=== PATIENT | female | born 1945 | race Caucasian/White ===

== ENCOUNTER 2017-03-01 05:32 | Inpatient (IN) | payer MEDICARE ==
[2017-02-24 12:06] LABS: BASOPHILS % (AUTO) 0.3 % (0-1); EOSINOPHILS # (AUTO) 0.3 X10'3 (0-0.9); EOSINOPHILS % (AUTO) 3.1 % (0-6); LYMPHOCYTES # (AUTO) 1.4 X10'3 (1.1-4.8); LYMPHOCYTES % (AUTO) 15.7 % (21-51); MEAN CORPUSCULAR HEMOGLOBIN 32.2 PG (27.0-31.0); MEAN CORPUSCULAR HGB CONC 33.4 % (33.0-36.5); MEAN CORPUSCULAR VOLUME 96.4 FL (78-98); MEAN PLATELET VOLUME 7.8 FL (7.4-10.4); MONOCYTES # (AUTO) 0.6 X10'3 (0-0.9); MONOCYTES % (AUTO) 7.4 % (2-12); NEUTROPHILS # (AUTO) 6.4 X10'3 (1.8-7.7); NEUTROPHILS % (AUTO) 73.5 % (42-75); PRE OP HEMATOCRIT 39.6 % (35.0-45.0); PRE OP HEMOGLOBIN 13.2 g/dL (12.0-16.0); PRE OP PLATELET COUNT 354 X10'3 (140-440); RED BLOOD COUNT 4.11 X10'6 (4.20-5.60); RED CELL DISTRIBUTION WIDTH 13.4 % (11.5-14.5)
[2017-02-24 12:28] LABS: ALBUMIN 4.3 G/DL (3.4-5.0); ALBUMIN/GLOBULIN RATIO 1.1 (1.1-1.5); ALKALINE PHOSPHATASE 65 IU/L (46-116); BLOOD UREA NITROGEN 12 MG/DL (7-18); BUN/CREATININE RATIO 12.2 (6.6-38.0); CALCIUM 9.4 MG/DL (8.5-10.1); CHLORIDE 95 MMOL/L (99-107); CREATININE 0.98 MG/DL (0.40-0.90); PRE OP ALT 27 U/L (30-65); PRE OP ANION GAP 10 (8-16); PRE OP AST 21 U/L (10-37); PRE OP BILIRUB, TOTAL 0.5 MG/DL (0.0-1.0); PRE OP GLUCOSE 111 MG/DL (70-104); PRE OP POTASSIUM 3.9 MMOL/L (3.4-5.1); PRE OP SODIUM 134 MMOL/L (135-145); TOTAL CARBON DIOXIDE 29.5 MMOL/L (24-32); TOTAL PROTEIN 8.1 G/DL (6.4-8.2); eGFR 56 ML/MIN
[2017-02-24 12:50] LABS: PRE OP PROTIME 9.9 SECONDS (9.0-12.0)
[2017-02-24 12:59] LABS: HEMOGLOBIN A1C 5.8 % (4.5-6.2)
[2017-03-01] VITALS (18 sets, daily range): BP systolic 118–152; BP diastolic 60–87
[~2017-03-01] VITALS: Ht 160 cm; Wt 101.8 kg
[~2017-03-01 05:32] MED LIST: AMLO2.5T2 PO; ASPI-611 PO; CHOL100062 PO; CYA500T INJ; DOCUMENT DATE & TIME OF BETA-BLOCKER PO ONE; ESZO3TAB37 PO; FERR325T32 PO; FLUT16SP2 BOTHNARES; FURO40TA4 PO; GABA-532 PO; GABA600T2 PO; HYDR-3973 PO; METF10002 PO; METO50TA17 PO; ROPI1TAB2 PO; SENN-93 PO; SERT100T PO; [UNRECOGNIZED DRUG - OTHER] PO; ceFAZolin 2gm in dextrose, iso 100 ML IV ONE; famotidine 20mg tablet PO ONE; ringers solution, lacted 1,000 ML IV SCH
[2017-03-01] MEDS ORDERED: LIDOcaine 1% (10mg/ml) 2ml vial ONE (05:53)
[2017-03-01] MEDS ORDERED: ceFAZolin 1000mg inj ONE (06:07)
[2017-03-01] MEDS ORDERED: fentaNYL /PF 50mcg/ml 5ml ampule ONE (07:25)
[2017-03-01] MEDS ORDERED: rocuronium 10mg/ml inj IV ONE (07:26)
[2017-03-01] MEDS ORDERED: LIDOcaine 2% (20mg/ml) 5ml vial ONE (07:26)
[2017-03-01] MEDS ORDERED: propofol inj 20 ML IV ONE (07:26)
[2017-03-01] MEDS ORDERED: tranexamic acid inj. 1,000 MG in normal saline 100ml IV soln 90 ML IV ONE (07:30)
[2017-03-01] MEDS ORDERED: cloNIDine hcl/PF 100mcg/ml inj ONE (07:30)
[2017-03-01] MEDS ORDERED: sevoflurane 250ml liquid IH ONE (07:35)
[2017-03-01] MEDS ORDERED: dexamethasone sod phosphate 4mg/ml inj. ONE (08:45)
[2017-03-01] MEDS ORDERED: ROPIVAcaine 0.5% (5mg/ml) 30ml vial ONE (08:45)
[2017-03-01] MEDS ORDERED: ePHEDrine 50MG/ML INJ. ONE (08:52)
[2017-03-01] MEDS ORDERED: ringers solution, lacted 1,000 ML IV SCH (09:09)
[2017-03-01] MEDS ORDERED: fentaNYL/PF 50MCG/1 ML 2ML syringe IV PRN ×2 (09:10)
[2017-03-01] MEDS ORDERED: ondansetron/PF 4mg/2ml inj IV PRN (09:10)
[2017-03-01] MEDS ORDERED: HYDROmorphone 1 mg/ml syringe IV PRN ×2 (09:10)
[2017-03-01] MEDS ORDERED: meperidine/PF 50mg/ml syringe ONE (10:45)
[2017-03-01] MEDS ORDERED: diphenhydrAMINE 25mg capsule PO PRN ×2 (11:05)
[2017-03-01] MEDS ORDERED: bisacodyl 10mg suppository rectal RC PRN (11:05)
[2017-03-01] MEDS ORDERED: magnesium hydroxide 30ml (MOM) UD suspension PO PRN (11:05)
[2017-03-01] MEDS ORDERED: HYDROcodone/acetaminophen 10/325mg tab PO PRN (11:05)
[2017-03-01] MEDS ORDERED: acetaminophen 325mg tablet PO PRN (11:05)
[2017-03-01] MEDS: HYDROmorphone 1 mg/ml syringe IV PRN ×3 (12:49→20:43)
[2017-03-01] MEDS ORDERED: tranexamic acid inj. 1,000 MG in normal saline 100ml IV soln 100 ML IV ONE (14:05)
[2017-03-01] MEDS: HYDROcodone/acetaminophen 10/325mg tab PO PRN ×2 (15:46→22:31)
[2017-03-01] MEDS: cefazolin 1gm/NS 100mL 100 ML IV SCH (17:07)
[2017-03-01] MEDS: aspirin 81mg tablet.DR PO SCH (17:16)
[2017-03-01] MEDS ORDERED: dextrose ORAL solution 15 GM/59 ML bottle PO PRN ×2 (19:55)
[2017-03-01] MEDS ORDERED: MESSAGE TO PHARMACY PO ONE (19:55)
[2017-03-01] MEDS ORDERED: dextrose 50%-water 50ml dispensing syringe IV PRN ×2 (19:55)
[2017-03-01] MEDS ORDERED: glucagon, human recombinant 1mg kit SUBCUT PRN (19:55)
[2017-03-01] MEDS ORDERED: vancomycin/NS 1 GM ADD-VANTAGE 250 ML IV SCH (20:00)
[2017-03-01] MEDS: ketorolac tromethamine 15mg/ml inj. IV SCH (20:43)
[2017-03-01] MEDS: sennosides 8.6mg tablet PO SCH (22:00)
[2017-03-01] MEDS: amLODIPine 2.5mg tablet PO SCH (22:01)
[2017-03-01] MEDS: zolpidem 5mg tablet PO PRN (22:01)
[2017-03-01] MEDS: gabapentin 300mg capsule PO SCH (22:01)
[2017-03-01] MEDS: metoprolol tartrate 50mg tablet PO SCH (22:01)
[2017-03-01] MEDS: potassium cl 20mEq in 1/2 NS 1,000 ML IV SCH (22:04)
[2017-03-01] MEDS: insulin glargine (Lantus) pen - multi-dose SQ SCH (22:29)
[2017-03-02] MEDS: ondansetron/PF 4mg/2ml inj IV PRN ×2 (00:05→19:26)
[2017-03-02] MEDS: cefazolin 1gm/NS 100mL 100 ML IV SCH (00:06)
[2017-03-02] MEDS: potassium cl 20mEq in 1/2 NS 1,000 ML IV SCH (00:22)
[2017-03-02 02:00] VITALS: BP 149/70
[2017-03-02] MEDS: ketorolac tromethamine 15mg/ml inj. IV SCH ×4 (02:22→20:00)
[2017-03-02] MEDS: HYDROcodone/acetaminophen 10/325mg tab PO PRN ×5 (05:12→23:21)
[2017-03-02 06:13] LABS: BASOPHILS % (AUTO) 0.3 % (0-1); EOSINOPHILS # (AUTO) 0.2 X10'3 (0-0.9); EOSINOPHILS % (AUTO) 1.7 % (0-6); HEMATOCRIT 29.7 % (35.0-45.0); HEMOGLOBIN 10.1 g/dl (12.0-16.0); LYMPHOCYTES # (AUTO) 1.1 X10'3 (1.1-4.8); LYMPHOCYTES % (AUTO) 11.8 % (21-51); MEAN CORPUSCULAR HEMOGLOBIN 32.6 PG (27.0-31.0); MEAN CORPUSCULAR VOLUME 95.9 FL (78-98); MEAN PLATELET VOLUME 7.7 FL (7.4-10.4); MONOCYTES # (AUTO) 1.1 X10'3 (0-0.9); MONOCYTES % (AUTO) 11.8 % (2-12); NEUTROPHILS # (AUTO) 6.7 X10'3 (1.8-7.7); NEUTROPHILS % (AUTO) 74.4 % (42-75); PLATELET COUNT 280 X10'3 (140-440); RED CELL DISTRIBUTION WIDTH 13.4 % (11.5-14.5)
[2017-03-02 06:40] LABS: ALANINE AMINOTRANSFERASE 26 U/L (12-78); ALBUMIN 3.2 G/DL (3.4-5.0); ALBUMIN/GLOBULIN RATIO 1.1 (1.1-1.5); ALKALINE PHOSPHATASE 49 IU/L (46-116); ANION GAP 5 (8-16); ASPARTATE AMINO TRANSFERASE 17 U/L (10-37); BILIRUBIN,TOTAL 0.8 MG/DL (0.1-1.0); BLOOD UREA NITROGEN 6 MG/DL (7-18); BUN/CREATININE RATIO 7.8 (6.6-38.0); CALCIUM 8.2 MG/DL (8.5-10.1); CHLORIDE 99 MMOL/L (99-107); CREATININE 0.77 MG/DL (0.40-0.90); GLUCOSE 166 MG/DL (70-104); SODIUM 132 MMOL/L (135-145); TOTAL CARBON DIOXIDE 28.4 MMOL/L (24-32); eGFR 74 ML/MIN
[2017-03-02] MEDS: fluticasone nasal spray 16GM bottle NS SCH (08:00)
[2017-03-02] MEDS: insulin Lispro (HumaLOG) vial - multi-dose SQ SCH ×2 (09:50→19:24)
[2017-03-02] MEDS: metoprolol tartrate 50mg tablet PO SCH ×2 (09:54→20:54)
[2017-03-02] MEDS: sertraline 50mg tablet PO SCH (09:54)
[2017-03-02] MEDS: gabapentin 300mg capsule PO SCH ×2 (09:54→20:54)
[2017-03-02] MEDS: amLODIPine 2.5mg tablet PO SCH ×2 (09:55→20:54)
[2017-03-02] MEDS: furosemide 40mg tablet PO SCH (09:55)
[2017-03-02] MEDS: aspirin 81mg tablet.DR PO SCH ×2 (09:55→17:52)
[2017-03-02 10:00] VITALS: BP 141/70
[2017-03-02] MEDS: HYDROmorphone 1 mg/ml syringe IV PRN (12:22)
[2017-03-02 15:00] VITALS: BP 131/80
[2017-03-02] MEDS: NUT.TX.GLUC.INTOLER,LAC-FR,REG (BOOST GLUCOSE CONTROL) 237 ML PO SCH (18:00)
[2017-03-02 18:30] VITALS: BP 137/73
[2017-03-02] MEDS: sennosides 8.6mg tablet PO SCH (20:54)
[2017-03-02] MEDS: insulin glargine (Lantus) pen - multi-dose SQ SCH (21:34)
[2017-03-02] MEDS: mag hydrox/Alum hydrox/simeth 30ml oral suspension PO PRN (21:55)
[2017-03-02] MEDS: zolpidem 5mg tablet PO PRN (21:55)
[2017-03-02 22:30] VITALS: BP 129/68
[2017-03-03] MEDS: HYDROcodone/acetaminophen 10/325mg tab PO PRN ×4 (04:12→21:45)
[2017-03-03 06:00] VITALS: BP 120/81
[2017-03-03 06:28] LABS: BASOPHILS % (AUTO) 0.2 % (0-1); EOSINOPHILS # (AUTO) 0.3 X10'3 (0-0.9); EOSINOPHILS % (AUTO) 2.4 % (0-6); HEMATOCRIT 28.5 % (35.0-45.0); HEMOGLOBIN 9.7 g/dl (12.0-16.0); LYMPHOCYTES # (AUTO) 0.9 X10'3 (1.1-4.8); LYMPHOCYTES % (AUTO) 7.7 % (21-51); MEAN CORPUSCULAR HEMOGLOBIN 32.5 PG (27.0-31.0); MEAN CORPUSCULAR VOLUME 95.7 FL (78-98); MEAN PLATELET VOLUME 7.6 FL (7.4-10.4); MONOCYTES % (AUTO) 8.6 % (2-12); NEUTROPHILS # (AUTO) 9.3 X10'3 (1.8-7.7); NEUTROPHILS % (AUTO) 81.1 % (42-75); PLATELET COUNT 266 X10'3 (140-440); RED BLOOD COUNT 2.98 X10'6 (4.20-5.60); RED CELL DISTRIBUTION WIDTH 13.4 % (11.5-14.5); WHITE BLOOD COUNT 11.5 X10'3 (4.5-11.0)
[2017-03-03 07:01] LABS: ALANINE AMINOTRANSFERASE 25 U/L (12-78); ALKALINE PHOSPHATASE 61 IU/L (46-116); ANION GAP 8 (8-16); ASPARTATE AMINO TRANSFERASE 19 U/L (10-37); BILIRUBIN,TOTAL 0.7 MG/DL (0.1-1.0); BLOOD UREA NITROGEN 8 MG/DL (7-18); BUN/CREATININE RATIO 11.4 (6.6-38.0); CALCIUM 8.6 MG/DL (8.5-10.1); CHLORIDE 97 MMOL/L (99-107); GLUCOSE 127 MG/DL (70-104); POTASSIUM 3.6 MMOL/L (3.5-5.1); SODIUM 131 MMOL/L (135-145); TOTAL CARBON DIOXIDE 26.5 MMOL/L (24-32); eGFR 82 ML/MIN
[2017-03-03] MEDS: aspirin 81mg tablet.DR PO SCH ×2 (08:09→22:00)
[2017-03-03] MEDS: NUT.TX.GLUC.INTOLER,LAC-FR,REG (BOOST GLUCOSE CONTROL) 237 ML PO SCH ×3 (08:09→18:00)
[2017-03-03] MEDS: metoprolol tartrate 50mg tablet PO SCH ×2 (08:09→21:46)
[2017-03-03] MEDS: furosemide 40mg tablet PO SCH (08:09)
[2017-03-03] MEDS: amLODIPine 2.5mg tablet PO SCH ×2 (08:10→21:46)
[2017-03-03] MEDS: gabapentin 300mg capsule PO SCH ×2 (08:10→21:47)
[2017-03-03] MEDS: sertraline 50mg tablet PO SCH (08:10)
[2017-03-03] MEDS: insulin Lispro (HumaLOG) vial - multi-dose SQ SCH ×3 (09:37→18:58)
[2017-03-03] MEDS: fluticasone nasal spray 16GM bottle NS SCH (09:49)
[2017-03-03 10:00] VITALS: BP 135/62
[2017-03-03 18:30] VITALS: BP 136/70
[2017-03-03] MEDS: sennosides 8.6mg tablet PO SCH (21:00)
[2017-03-03] MEDS: insulin glargine (Lantus) pen - multi-dose SQ SCH (21:00)
[2017-03-03 22:00] VITALS: BP 143/96
[2017-03-03] MEDS: mag hydrox/Alum hydrox/simeth 30ml oral suspension PO PRN (22:01)
[2017-03-03] MEDS: zolpidem 5mg tablet PO PRN (23:06)
[2017-03-04] MEDS: HYDROcodone/acetaminophen 10/325mg tab PO PRN ×2 (01:50→08:48)
[2017-03-04 05:00] VITALS: BP 129/70
[2017-03-04 06:23] LABS: BASOPHILS % (AUTO) 0.1 % (0-1); EOSINOPHILS # (AUTO) 0.3 X10'3 (0-0.9); EOSINOPHILS % (AUTO) 2.8 % (0-6); HEMOGLOBIN 9.1 g/dl (12.0-16.0); LYMPHOCYTES # (AUTO) 0.8 X10'3 (1.1-4.8); LYMPHOCYTES % (AUTO) 8.2 % (21-51); MEAN CORPUSCULAR HEMOGLOBIN 32.6 PG (27.0-31.0); MEAN CORPUSCULAR HGB CONC 33.7 % (33.0-36.5); MEAN CORPUSCULAR VOLUME 96.7 FL (78-98); MEAN PLATELET VOLUME 8.1 FL (7.4-10.4); MONOCYTES % (AUTO) 10.5 % (2-12); NEUTROPHILS # (AUTO) 7.4 X10'3 (1.8-7.7); NEUTROPHILS % (AUTO) 78.4 % (42-75); PLATELET COUNT 256 X10'3 (140-440); RED CELL DISTRIBUTION WIDTH 12.8 % (11.5-14.5); WHITE BLOOD COUNT 9.5 X10'3 (4.5-11.0)
[2017-03-04 07:04] LABS: ALANINE AMINOTRANSFERASE 19 U/L (12-78); ALBUMIN 2.8 G/DL (3.4-5.0); ALBUMIN/GLOBULIN RATIO 0.9 (1.1-1.5); ALKALINE PHOSPHATASE 66 IU/L (46-116); ANION GAP 5 (8-16); ASPARTATE AMINO TRANSFERASE 17 U/L (10-37); BILIRUBIN,TOTAL 0.6 MG/DL (0.1-1.0); BLOOD UREA NITROGEN 9 MG/DL (7-18); BUN/CREATININE RATIO 12.9 (6.6-38.0); CALCIUM 8.6 MG/DL (8.5-10.1); CHLORIDE 98 MMOL/L (99-107); GLUCOSE 130 MG/DL (70-104); POTASSIUM 3.9 MMOL/L (3.5-5.1); SODIUM 132 MMOL/L (135-145); TOTAL CARBON DIOXIDE 29.1 MMOL/L (24-32); eGFR 82 ML/MIN
[2017-03-04] MEDS: NUT.TX.GLUC.INTOLER,LAC-FR,REG (BOOST GLUCOSE CONTROL) 237 ML PO SCH (08:46)
[2017-03-04] MEDS: aspirin 81mg tablet.DR PO SCH (08:46)
[2017-03-04] MEDS: gabapentin 300mg capsule PO SCH (08:47)
[2017-03-04] MEDS: fluticasone nasal spray 16GM bottle NS SCH (08:47)
[2017-03-04] MEDS: furosemide 40mg tablet PO SCH (08:47)
[2017-03-04] MEDS: metoprolol tartrate 50mg tablet PO SCH (08:47)
[2017-03-04] MEDS: sertraline 50mg tablet PO SCH (08:48)
[2017-03-04] MEDS: amLODIPine 2.5mg tablet PO SCH (08:48)
[2017-03-04] MEDS: insulin Lispro (HumaLOG) vial - multi-dose SQ SCH (09:44)
[2017-03-04 10:30] VITALS: BP 114/75
== END 2017-03-04 11:30 | DRG 470 ==
LOC: PAS IN 05:32 → EDSTATUS 07:30 → ORTHO 4S 12:07
PROVIDERS: ADMIT Orthopaedic Surgery; ATTEND Orthopaedic Surgery
PROC: 3E0T3BZ Introduction of Anesthetic Agent into Peripheral Nerves and Plexi, Percutaneous Approach (ICD-10-PCS; 2017-03-01)
PROC: 0SRC0J9 Replacement of Right Knee Joint with Synthetic Substitute, Cemented, Open Approach (ICD-10-PCS; principal; 2017-03-01 07:28)
DX: M17.11 Unilateral primary osteoarthritis, right knee (principal); D62 Acute posthemorrhagic anemia; I48.2 Chronic atrial fibrillation; E11.9 Type 2 diabetes mellitus without complications; F32.9 Major depressive disorder, single episode, unspecified; G25.81 Restless legs syndrome; I10 Essential (primary) hypertension; I25.10 Atherosclerotic heart disease of native coronary artery without angina pectoris; Z96.652 Presence of left artificial knee joint; Z96.611 Presence of right artificial shoulder joint; Z98.1 Arthrodesis status; Z98.84 Bariatric surgery status; Z90.49 Acquired absence of other specified parts of digestive tract; Z79.899 Other long term (current) drug therapy
CPT/HCPCS: 36415; 71046; 80053; 82948; 83036; 85025; 85610; 85730; 86885; 86900; 86901; 86920; 87070; 97110; 97116; 97162; 97530; A6223; A6255; A6449; A6454; A7000; C1713; C1758; C1776; J0690; J0735; J1100; J1170; J1815; J1885; J2001; J2175; J2405; J2704; J2795; J3010; J3370; J3490; J7030; J7120

== ENCOUNTER 2019-08-07 10:37 | Emergency (ER) | payer MEDICARE ==
[~2019-08-07] VITALS: Ht 157.5 cm; Wt 96.0 kg
[~2019-08-07 10:37] MED LIST changes: -ASPI-611 PO; -CHOL100062 PO; -CYA500T INJ; -DOCUMENT DATE & TIME OF BETA-BLOCKER PO ONE; -FERR325T32 PO; +GABA600T13 PO; -GABA600T2 PO; -HYDR-3973 PO; -METF10002 PO; -[UNRECOGNIZED DRUG - OTHER] PO; -ceFAZolin 2gm in dextrose, iso 100 ML IV ONE; -famotidine 20mg tablet PO ONE; -ringers solution, lacted 1,000 ML IV SCH
[2019-08-07 11:13] LABS: BASOPHILS % (AUTO) 0.2 % (0-1); EOSINOPHILS # (AUTO) 0.1 X10'3 (0-0.9); EOSINOPHILS % (AUTO) 0.8 % (0-6); HEMATOCRIT 38.2 % (35.0-45.0); HEMOGLOBIN 12.7 g/dl (12.0-16.0); LYMPHOCYTES # (AUTO) 0.4 X10'3 (1.1-4.8); LYMPHOCYTES % (AUTO) 2.5 % (21-51); MEAN CORPUSCULAR HEMOGLOBIN 31.7 PG (27.0-31.0); MEAN CORPUSCULAR HGB CONC 33.3 g/dL (33.0-36.5); MEAN CORPUSCULAR VOLUME 95.2 FL (78-98); MEAN PLATELET VOLUME 7.6 FL (7.4-10.4); MONOCYTES # (AUTO) 0.6 X10'3 (0-0.9); MONOCYTES % (AUTO) 3.8 % (2-12); NEUTROPHILS # (AUTO) 13.9 X10'3 (1.8-7.7); NEUTROPHILS % (AUTO) 92.7 % (42-75); PLATELET COUNT 334 X10'3 (140-440); RED BLOOD COUNT 4.01 X10'6 (4.20-5.60); RED CELL DISTRIBUTION WIDTH 13.6 % (11.5-14.5)
[2019-08-07 11:31] LABS: ALANINE AMINOTRANSFERASE 22 U/L (12-78); ALBUMIN 3.9 G/DL (3.4-5.0); ALBUMIN/GLOBULIN RATIO 1.1 (1.1-1.5); ALKALINE PHOSPHATASE 76 IU/L (46-116); ANION GAP 12 (8-16); ASPARTATE AMINO TRANSFERASE 22 U/L (10-37); BILIRUBIN,TOTAL 0.6 MG/DL (0.1-1.0); BLOOD UREA NITROGEN 16 MG/DL (7-18); BUN/CREATININE RATIO 16.7 (6.6-38.0); CALCIUM 9.6 MG/DL (8.5-10.1); CHLORIDE 100 MMOL/L (99-107); CREATININE 0.96 MG/DL (0.40-0.90); GLUCOSE 100 MG/DL (70-104); POTASSIUM 4.2 MMOL/L (3.5-5.1); SODIUM 137 MMOL/L (135-145); TOTAL PROTEIN 7.3 G/DL (6.4-8.2); eGFR 57 ML/MIN
[2019-08-07] MEDS ORDERED: normal saline 1000ML IV soln IV ONE (11:40)
[2019-08-07 11:54] LABS: CLARITY,URINE SLIGHTLY CLOUDY (Clear); COLOR,URINE YELLOW (Yellow); GLUCOSE, URINE NEGATIVE (Neg); KETONES,URINE NEGATIVE (Neg); LEUKOCYTE ESTERASE ,URINE MODERATE (Neg); NITRITES, URINE POSITIVE (Neg); OCCULT BLOOD,URINE NEGATIVE (Neg); PROTEIN,URINE NEGATIVE (Neg); UROBILINOGEN,URINE 0.2 E.U/dL (0.2-1.0)
[2019-08-07 11:58] LABS: UA COLLECTION TYPE STRAIGHT CATH
--- NOTE | 2019-08-07 12:03 | NUR ---
Pt. getting IV fluids as ordered. VSS. Urine in lab & results pending. family at bedside.
[2019-08-07 12:04] LABS: WBC,URINE 50-100 /HPF (0-4)
[2019-08-07 12:05] LABS: BACTERIA,URINE 4+ /HPF (Neg); RBC,URINE 0-2 /HPF (0-2); SQUAMOUS EPITHELIAL CELL,UR FEW /LPF (FEW); TRANSITIONAL EPI CELLS,URINE FEW /HPF; WBC CLUMPS,URINE FEW /HPF (NEGATIVE)
[2019-08-07] MEDS ORDERED: CefTRIAXone 2gm/D5W 50ml 50 ML IV ONE (12:15)
[2019-08-07] MEDS ORDERED: heparin 25,000 UNIT/250ml bag 250 ML IV SCH (12:23)
[2019-08-07] MEDS ORDERED: heparin 10,000 units/1 ML INJ IV ONE (12:25)
[2019-08-07] MEDS ORDERED: CEPH250T PO (14:10)
[2019-08-07 14:46] VITALS: BP 141/71
== END 2019-08-07 14:50 | disposition home or self-care (01) ==
LOC: ER 10:37
DX: N39.0 Urinary tract infection, site not specified (principal); E87.2 Acidosis; I48.91 Unspecified atrial fibrillation; I10 Essential (primary) hypertension; E11.9 Type 2 diabetes mellitus without complications; Z90.49 Acquired absence of other specified parts of digestive tract; Z90.89 Acquired absence of other organs; Z98.890 Other specified postprocedural states; Z88.8 Allergy status to other drugs, medicaments and biological substances; Z79.899 Other long term (current) drug therapy
CPT/HCPCS: 36415; 80053; 81001; 83605; 85025; 87088; 96365; 99284; J0696; J7030; 87077; 87186

== ENCOUNTER 2021-08-09 11:12 | Emergency (ER) | payer MEDICARE ==
[~2021-08-09] VITALS: Ht 157.5 cm; Wt 100.0 kg
[~2021-08-09 11:12] MED LIST changes: +ASPI-1265 PO; +AZI25OT PO; +METF-438 PO; +TRAM50TA PO
[2021-08-09] MEDS ORDERED: acetaminophen 325mg tablet PO STA (11:51)
[2021-08-09] MEDS ORDERED: normal saline 1000ml 1,000 ML IV ONE (11:55)
[2021-08-09 12:22] LABS: HEMOGLOBIN 12.3 g/dl (12.0-16.0); MEAN CORPUSCULAR HGB CONC 33.4 g/dL (33.0-36.5)
[2021-08-09 12:24] LABS: BASOPHILS % (AUTO) 0.2 % (0-1); EOSINOPHILS % (AUTO) 0.2 % (0-6); HEMATOCRIT 36.9 % (35.0-45.0); LYMPHOCYTES # (AUTO) 0.4 X10'3 (1.1-4.8); LYMPHOCYTES % (AUTO) 4.7 % (21-51); MEAN CORPUSCULAR HEMOGLOBIN 32.1 PG (27.0-31.0); MEAN CORPUSCULAR VOLUME 96.1 FL (78-98); MEAN PLATELET VOLUME 8.8 FL (7.4-10.4); MONOCYTES # (AUTO) 0.6 X10'3 (0-0.9); MONOCYTES % (AUTO) 7.4 % (2-12); NEUTROPHILS # (AUTO) 7.6 X10'3 (1.8-7.7); NEUTROPHILS % (AUTO) 87.5 % (42-75); PLATELET COUNT 267 X10'3 (140-440); RED BLOOD COUNT 3.83 X10'6 (4.20-5.60); RED CELL DISTRIBUTION WIDTH 13.2 % (11.5-14.5); WHITE BLOOD COUNT 8.6 X10'3 (4.5-11.0)
[2021-08-09 12:34] LABS: D-DIMER 1.91 MG/L FEU (0-0.50)
[2021-08-09 12:45] LABS: ALANINE AMINOTRANSFERASE 24 U/L (12-78); ALBUMIN 3.8 G/DL (3.4-5.0); ALBUMIN/GLOBULIN RATIO 1.1 (1.1-1.5); ALKALINE PHOSPHATASE 93 IU/L (46-116); ANION GAP 12 (8-16); ASPARTATE AMINO TRANSFERASE 29 U/L (10-37); BILIRUBIN,TOTAL 0.6 MG/DL (0.1-1.0); BLOOD UREA NITROGEN 14 MG/DL (7-18); CALCIUM 9.1 MG/DL (8.5-10.1); CHLORIDE 98 MMOL/L (99-107); GLUCOSE 147 MG/DL (70-104); MAGNESIUM 1.8 MG/DL (1.5-2.4); POTASSIUM 3.1 MMOL/L (3.5-5.1); SODIUM 136 MMOL/L (135-145); TOTAL CARBON DIOXIDE 25.9 MMOL/L (24-32); TOTAL PROTEIN 7.2 G/DL (6.4-8.2); eGFR 82 ML/MIN
[2021-08-09] MEDS ORDERED: BEBTELOVIMAB 175 MG/2 ML VIAL IV ONE (13:35)
[2021-08-09 15:42] VITALS: BP 167/92
== END 2021-08-09 15:46 | disposition home or self-care (01) ==
LOC: ER 11:12
DX: U07.1 COVID-19 (principal); J12.82 Pneumonia due to coronavirus disease 2019; R51.9 Headache, unspecified; R11.0 Nausea; R19.7 Diarrhea, unspecified; I48.91 Unspecified atrial fibrillation; I10 Essential (primary) hypertension; Z87.440 Personal history of urinary (tract) infections; E11.9 Type 2 diabetes mellitus without complications; Z90.49 Acquired absence of other specified parts of digestive tract; Z98.890 Other specified postprocedural states; Z90.89 Acquired absence of other organs; Z88.8 Allergy status to other drugs, medicaments and biological substances; Z79.82 Long term (current) use of aspirin; Z79.2 Long term (current) use of antibiotics; Z79.899 Other long term (current) drug therapy
CPT/HCPCS: 36415; 71045; 80053; 83605; 83735; 84145; 84484; 85025; 85379; 86140; 87040; 87635; 93005; 96360; 96361; 99291; C9803; J7030; M0222; Q0222